=== PATIENT | male | born 1945 | race Caucasian/White ===

== ENCOUNTER 2017-04-08 15:43 | Emergency (ER) | payer MEDICARE | END 2017-04-08 16:45 | disposition home or self-care (01) | LOC: ER 15:43 | DX: S22.32XA Fracture of one rib, left side, initial encounter for closed fracture (principal); W19.XXXA Unspecified fall, initial encounter; Y92.009 Unspecified place in unspecified non-institutional (private) residence as the place of occurrence of the external cause; Z79.899 Other long term (current) drug therapy; Z79.82 Long term (current) use of aspirin; Z88.1 Allergy status to other antibiotic agents; Z79.891 Long term (current) use of opiate analgesic | CPT/HCPCS: 99283-25 ==